=== PATIENT | female | born 1965 | race American Indian/Alaskan Native ===

== ENCOUNTER 2018-01-10 08:02 | Day surgery (SDC) | payer BC ==
[~2018-01-10] VITALS: Ht 160 cm; Wt 66.7 kg
--- NOTE | 2018-01-10 10:16 | NUR ---
01/10/18 1016 Lilia Andrews 1004 PT ARRIVED TO PACU NONAROUSABLE, RESP EVEN AND UNLABORED ON 2L VIA NC. 1010 PT CONTINUES TO BE NONAROUSABLE, SOME SNORING NOTED.
--- NOTE | 2018-01-10 10:48 | OR ---
[facility] [address], [place] [address] Signed DATE OF OPERATION: 01/10/2018 SURGEON: Jody Cheung MD PREOPERATIVE DIAGNOSIS: Screening. POSTOPERATIVE DIAGNOSES: 1. 4 mm and 8 mm sessile polyps in distal right colon. 2. Long redundant colon including sigmoid. 3. Moderate sized internal and external hemorrhoids. PROCEDURE: Colonoscopy with hot biopsy. ESTIMATED BLOOD LOSS: None. INDICATIONS: Tamanna is a 53-year-old female, who was asked to see me for her initial screening colonoscopy. She told me there is no family history of colon cancer or polyps. She has no lower GI complaints. In the office, I gave her a pamphlet on endoscopy. We looked at that together along with the risks including, but not limited to gas, bloating, crampy abdominal pain, bleeding, perforation, requiring surgery, and missed diagnosis. We also discussed the need for IV conscious sedation. She had expressed understanding and wish to proceed. PROCEDURE NOTE: Tamanna was taken into our endoscopy suite and placed in the left lateral decubitus position. She was given 9 mg of Versed and 150 mcg of fentanyl. We had done a rectal exam and she does have moderate external hemorrhoids. She has good sphincter tone. The adult colonoscope had been introduced and advanced under direct visualization of camera. She has some long narrow redundant sigmoid colon including a long redundant colon all the way to the cecum. The sigmoid colon gave us the most trouble with the scope dragging and we simply not making any progress with the Versed and fentanyl. Consequently, we brought an anesthesia provider and had a propofol and once she was adequately sedated, I was able to get the scope into the cecum itself. Her prep was quite good. The scope was then slowly withdrawn. We had seen some areas of irritation and erythema in the colon, so we went ahead and took several random biopsies from the colon or rectum for pathologic review. We found two polyps in her distal right colon, Electronically Signed By: JODY CHEUNG MD 01/10/18 1048 PATIENT NAME: TAMANNA HAZEL OPERATIVE REPORT DATE OF : 61 REPORT #: [id number] PHYSICIAN: JODY CHEUNG MD PCP: CECILY RAWLS REPORT IS CONFIDENTIAL AND NOT TO BE RELEASED WITHOUT AUTHORIZATION [facility] [address], [place] [address] Signed so we removed them with the help of hot biopsy forceps. Once in the rectum, the scope had been retroflexed and she does have moderate internal hemorrhoid columns. After this, the gas was suctioned out and the colonoscope removed. Tamanna tolerated the procedure quite well. RECOMMENDATIONS: I will see Tamanna back in my office in 7 to 14 days to review her results. She will definitely need propofol for future colonoscopies. MD BONI Gimenez/PAULL /[id number] cc: GUME Almonte MD Copies: CECILY RAWLS ANDREW L MD ~ Electronically Signed By: JODY CHEUNG MD 01/10/18 1048 PATIENT NAME: TAMANNA HAZEL OPERATIVE REPORT DATE OF : 61 REPORT #: [id number] PHYSICIAN: JODY CHEUNG MD PCP: CECILY RAWLS REPORT IS CONFIDENTIAL AND NOT TO BE RELEASED WITHOUT AUTHORIZATION
== END 2018-01-10 11:22 | disposition home or self-care (01) ==
LOC: OPS 08:02 → DS 08:02 → OPS 09:00
PROVIDERS: Colon & Rectal Surgery
PROC: 0DBE8ZX Excision of Large Intestine, Via Natural or Artificial Opening Endoscopic, Diagnostic (ICD-10-PCS; principal; 2018-01-10 09:00)
DX: Z12.11 Encounter for screening for malignant neoplasm of colon (principal); D12.6 Benign neoplasm of colon, unspecified; K63.5 Polyp of colon; K64.4 Residual hemorrhoidal skin tags; K64.8 Other hemorrhoids; J45.909 Unspecified asthma, uncomplicated
CPT/HCPCS: 99153; G0500; J2250; J2704; J3010; J7120